=== PATIENT | male | born 1970 | race Caucasian/White ===

== ENCOUNTER 2019-01-04 16:55 | Emergency (ER) | payer OTHER ==
[2019-01-04] MEDS ORDERED: ACETAMINOPHEN 325 MG TABLET (FP) PO ONE (17:16)
[2019-01-04] MEDS ORDERED: ONDANSETRON *ODT* 4 MG TABLET SL ONE (17:17)
[2019-01-04] MEDS ORDERED: ACETAMINOPHEN 325 MG TABLET (FP) ONE (17:26)
[2019-01-04] MEDS ORDERED: ONDANSETRON *ODT* 4 MG TABLET ONE (17:26)
--- NOTE | 2019-01-04 17:26 | PDOC ---
History of Present Illness - General Stated Complaint: Overdose Time Seen by Provider: 01/04/19 16:59 History Source: Patient Exam Limitations: Intoxication (pt awake, but does not remember all of the incident) - History of Present Illness Initial Comments: Pt presenting via EMS from a friend's home after OD on IV heroin use. Pt states he abstained from all drugs and alcohol for 3 years, but today, used "1 bag" of IV heroin after increasing stress at home and trying to get disability insurance. Pt states he used the heroin about 3:30 pm, and the last thing he remembers was "standing up by the couch". The pt then "woke up with EMS around me" on the hardwood floor. Pt denies any active plan to hurt himself, denies current SI/HI stating "I am stress and made a mistake today". EMS provided 2 mg IM narcan, as pts breathing rate was 4 at scene and was minimally responsive. Pt then had 1 episode of NBNB vomiting after he woke up, but was able to communicate with EMS crew. Pts only current complaint is mild headache and nausea. Pt denies any recent fevers/chills, vision changes, chest pain, palpitations, SOB, abdominal pain, urinary symptoms, diarrhea/constipation, or leg swelling. Social: 1 episode heroin use as above, prior heroin and cocaine abuse. Denies cigarettes or alcohol. Pt denies any recent travel or sick contacts. Pt lives at home with his mother and will be able to return there once stable. Surgical: spinal fusion/laminectomy. Family: no relevant history. No early CVA/NC history. 01/04/19 18:03 Past History - Travel Traveled outside of the country in the last 30 days: No Close contact w/someone who was outside of country & ill: No - Past Medical History Allergies/Adverse Reactions: Allergies Allergy/AdvReac Type Severity Reaction Status Date / Time No Known Allergies Allergy Verified 01/04/19 17:34 Home Medications: Ambulatory Orders Gabapentin [Neurontin] 300 mg PO TID 01/08/13 Oxycodone HCl/Acetaminophen [Percocet 10-325 mg Tablet] 1 tab PO Q4H 01/08/13 oxyCODONE SR [Oxycontin*SA*] 40 mg PO BID 01/08/13 - Surgical History Orthopedic Surgery: (LAMINECTOMY) - Suicide/Smoking/Psychosocial Hx Smoking Status: Yes Smoking History: Current every day smoker Number of Cigarettes Smoked Daily: 10 Review of Systems - Review of Systems Able to Perform ROS?: Yes Is the patient limited Turkish proficient: No Constitutional: Yes: Diaphoresis (post narcan with vomiting), Weight Stable. No : Chills, Fever, Loss of Appetite, Malaise, Weakness HEENTM: No: Blurred Vision, Double Vision, Nose Pain, Nose Congestion, Nose Bleeding, Throat Pain, Throat Swelling, Difficulty Swallowing Respiratory: Yes: Other (mild chest tightness with chronic asthma). No: Cough, Orthopnea, Shortness of Breath, Stridor, Wheezing, Hemoptysis Cardiac (ROS): Yes: Chest Tightness. No: Chest Pain, Edema, Irregular Heart Rate, Lightheadedness, Palpitations, Syncope ABD/GI: Yes: Nausea, Vomiting (post narcan, 1 episode NBNB n/v). No: Constipated, Diarrhea, Poor Appetite, Poor Fluid Intake, Abdominal cramping : No: Burning, Dysuria, Pain, Urgency Musculoskeletal: No: Back Pain, Joint Pain, Muscle Pain, Muscle Weakness, Neck Pain Integumentary: No: Rash Neurological: Yes: Headache (headache post narcan/fall). No: Numbness, Paresthesia, Seizure, Weakness, Unsteady Gait, Ataxia, Dizziness Psychiatric: Yes: Anxiety, Depression, Stressors, Emotional Problems. No: Sleep Pattern Change, Change in Appetite Endocrine: No: Increased Urine, Change in Weight Hematologic/Lymphatic: No: Anemia, Blood Clots, Easy Bleeding, Easy Bruising All Other Systems: Reviewed and Negative *Physical Exam - Physical Exam Comments: Mild tachycardia HR 103, O2 100% on RA, pt afebrile. Pt diaphoretic, but in NAD. Normal body habitus. Pt alert and oriented x3. sustainability analyst generally intact, muscular strength and sensation intact. No midline spinal tenderness, step-offs, or crepitus. Head normocephalic, atraumatic. Eyes PERRLA, EOMI. Oropharynx without erythema or exudates, no LAD b/l. No nasal congestion, hearing intact. Clear heart sounds, S1/S2, no JVD, b/l pedal edema, or heart murmur. Clear lung sounds, no respiratory distress, wheezes, crackles, or accessory muscle use. No abdominal or CVA tenderness to palpation, no rebound, no guarding. Abdomen soft, non-distended, and with normoactive bowel sounds. Site of recent IV injection on R hand, with no significant erythema or drainage. Skin otherwise without jaundice or rash. 01/04/19 17:27 01/04/19 18:04 Medical Decision Making - Medical Decision Making Pt was seen at bedside, also will be seen by attending Dr. Atwood. Pt presenting via EMS from a friend's home after OD on IV heroin use. Pt states he abstained from all drugs and alcohol for 3 years, but today, used "1 bag" of IV heroin after increasing stress at home and trying to get disability insurance. Pt states he used the heroin about 3:30 pm, and the last thing he remembers was "standing up by the couch". The pt then "woke up with EMS around me" on the hardwood floor. Pt denies any active plan to hurt himself, denies current SI/HI stating "I am stress and made a mistake today". EMS provided 2 mg IM narcan, as pts breathing rate was 4 at scene and was minimally responsive. Pt then had 1 episode of NBNB vomiting after he woke up, but was able to communicate with EMS crew. Pts only current complaint is mild headache and nausea. Pt denies any recent fevers/chills, vision changes, chest pain, palpitations, SOB, abdominal pain, urinary symptoms, diarrhea/constipation, or leg swelling. Story consistent with overdose from heroin, and pt admitting to using IV drugs. Pt denies any recent fevers/chills or systemic signs. Pt fell from height, will get CT to eval for signs of bleed. Ordered work-up including ECG and non-contrast head CT to evaluate for bleeds, considering pt had fall from standing height, now has mild headache, and does not remember falling. Provided 650 mg PO tylenol and 4 mg SL zofran for improvement of mild headache and nausea. Will continue to reassess pt and monitor for symptomatic improvement. ECG: Sinus tachycardia, intervals WNL (HR 102, KY 140, QRS 86, QTc 477). LVH. No TWIs or significant ST segment changes. LVH not noted on report from prior ECG (December 2012). 01/04/19 17:28 Pt had episode of NBNB vomiting after PO meds. Placing IV line, providing 1 L IV NS and 4 mg IV zofran. 01/04/19 17:43 IV line placed, pt being taken for CT scan. O2 is stable on RA, stable BP, pt alert and oriented. 01/04/19 17:50 Pt brought back from CT as urgent pts pushed ahead, will take back to CT for scan. 01/04/19 18:[address] scan, tolerated small PO water intake in ED, but still complaining of nausea. Providing 25 mg IV benadryl and 10 mg IV reglan. 01/04/19 19:40 CT head without any acute pathology. Will continue to reassess for symptomatic improvement of n/v. 01/04/19 20:04 Pt improved after medications. Vital signs stable and pt is breathing on RA, oriented x3. Has had no further episodes of n/v and has not become hypoxic while in the ED after 4 hours of monitoring. Pt continues to deny SI/HI and has a plan to go to his friends house via cab to stay the night. Pt can follow-up outpatient with PCP. 01/04/19 20:54 *DC/Admit/Observation/Transfer Diagnosis at time of Disposition: Accidental heroin overdose Qualifiers: Encounter type: initial encounter Qualified Code(s): T40.1X1A - Poisoning by heroin, accidental (unintentional), initial encounter - Discharge Dispostion Disposition: HOME Condition at time of disposition: Improved Decision to Admit order: No - Referrals Referrals: Teri Lovett MD [Non Staff, Medical] - - Patient Instructions Printed Discharge Instructions: DI for Drug Overdose in Adults Additional Instructions: You were seen in the ER today for overdose on heroin. You improved after medication (zofran, tylenol, and reglan) for your pain and nausea. Please follow -up with your primary care doctor within 1-2 days to discuss your visit and make sure your symptoms have improved. Please abstain from additional drug use. Please return to the ER or call if you have any worsening pain, plans to hurt yourself or anyone else, development of fevers or chills, loss of consciousness, inability to tolerate food or fluids, shortness of breath, or any other concerns. - Post Discharge Activity
[2019-01-04 17:35] VITALS: BMI 28.0
[2019-01-04] MEDS ORDERED: ONDANSETRON 4 MG/2 ML VIAL IVPUSH ONE (17:39)
[2019-01-04] MEDS ORDERED: SODIUM CHLORIDE 1,000 ML IV STA (17:39)
--- NOTE | 2019-01-04 17:50 | PDOC ---
Documentation entered by Conrado Lambert SCRIBE, acting as scribe for Wellington Atwood MD. Wellington Atwood MD: This documentation has been prepared by the Fausto billy Daniel, SCRIBE, under my direction and personally reviewed by me in its entirety. I confirm that the documentation accurately reflects all work, treatment, procedures, and medical decision making performed by me. Attending Attestation - Resident Resident Name: CristineBrigida - ED Attending Attestation I have performed the following: I have examined & evaluated the patient, The case was reviewed & discussed with the resident, I agree w/resident's findings & plan, Exceptions are as noted - HPI HPI: 01/04/19 17:27 The patient is a 48 year old male with a past medical history of depression, anxiety, HTN, and asthma brought in today by EMS for evaluation of heroin overdose. The patient reports that he has been clean for the past 2 years but used IV heroin today around 3:30 PM. As per EMS, the patient was found by his roommate on the ground. EMS found the patient unconscious and gave 2 doses of narcan and the patient subsequently woke up. Patient reports 1 episode of vomiting and a mild headache. Does not recall falling or hitting his head. Pt denies trying to overdose. Denies SI/HI/AVH. Patient denies lightheadedness. Denies fever, chills. Denies chest pain, shortness of breath. Denies nausea, diarrhea, abdominal pain. Allergies: NKA Social history: Patient denies illegal drug use besides heroin. - Physicial Exam PE: 01/04/19 17:40 "GENERAL: Awake, alert, and fully oriented, in no acute distress. HEAD: No signs of trauma EYES: PERRLA, EOMI, sclera anicteric, conjunctiva clear ENT: Auricles normal inspection, hearing grossly normal, nares patent, oropharynx clear without exudates. Moist mucosa NECK: Nontender, no stepoffs, Normal ROM, supple, no lymphadenopathy, JVD, or masses LUNGS: Breath sounds equal, clear to auscultation bilaterally. No wheezes, and no crackles HEART: Regular rate and rhythm, normal S1 and S2, no murmurs, rubs or gallops ABDOMEN: Soft, nontender, normoactive bowel sounds. No guarding, no rebound. No masses EXTREMITIES: Normal range of motion, no edema. No clubbing or cyanosis. No cords, erythema, or tenderness NEUROLOGICAL: Cranial nerves II through XII intact. 5/5 strength and sensation in all extremities, Normal speech, normal gait, normal cerebellar function SKIN: Warm, Dry, normal turgor, no rashes or lesions noted. - Medical Decision Making 01/04/19 17:40 48 M with heroin overdose, now awake and alert after narcan by EMS. Pt in ED complaining of headache. Given pt was found on the ground, will obtain head CT to r/o ICH. Pt with no neuro deficits. Pt also vomiting in ED, likely 2/2 heroin abuse. - CT head - IVF, zofran, tylenol 01/04/19 21:49 CT negative Pt reassessed - now tolerating PO Awake and alert, no clinical signs of intoxication Pt is well appearing, with normal vitals. Clinically stable for DC at this time. I discussed the physical exam findings, ancillary test results and final diagnoses with the patient. I answered all of the patient's questions. The patient was satisfied with the care received and felt comfortable with the discharge plan and treatment plan. The patient agrees to follow up with the primary care physician within 24-72 hours.
[2019-01-04] MEDS ORDERED: ACETAMINOPHEN 1000 MG/100 ML VIAL (NON FORMULARY) IVPB ONE (18:07)
[2019-01-04] MEDS ORDERED: ACETAMINOPHEN INJECTION 100 ML IVPB ONE (19:21)
[2019-01-04] MEDS ORDERED: METOCLOPRAMIDE HCL INJECTION 10 MG/2 ML VIAL IVPUSH ONE (19:39)
[2019-01-04] MEDS ORDERED: METOCLOPRAMIDE HCL INJECTION 10 MG/2 ML VIAL ONE (20:47)
[2019-01-04 21:35] VITALS: BP 117/74; PULSE 77; TEMP 97.7
--- NOTE | 2019-01-05 14:19 | EKG ---
Test Reason : Blood Pressure : / mmHG Vent. Rate : 102 BPM Atrial Rate : 102 BPM P-R Int : 140 ms QRS Dur : 086 ms QT Int : 366 ms P-R-T Axes : 033 004 028 degrees QTc Int : 477 ms SINUS TACHYCARDIA MINIMAL VOLTAGE CRITERIA FOR LVH, MAY BE NORMAL VARIANT NONSPECIFIC T WAVE ABNORMALITY ABNORMAL ECG Confirmed by MD GAVIN, BRIAN ([id number]) on 01/05/2019 2:19:41 PM Referred By: Confirmed By:BRIAN ALONSO MD
== END 2019-01-04 22:13 | disposition home or self-care (01) ==
LOC: JER 16:55
PROC: 3E033GC Introduction of Other Therapeutic Substance into Peripheral Vein, Percutaneous Approach (ICD-10-PCS; principal; 2019-01-04)
PROC: 3E033GC Introduction of Other Therapeutic Substance into Peripheral Vein, Percutaneous Approach (ICD-10-PCS; 2019-01-04)
PROC: 3E033NZ Introduction of Analgesics, Hypnotics, Sedatives into Peripheral Vein, Percutaneous Approach (ICD-10-PCS; 2019-01-04)
DX: T40.1X1A Poisoning by heroin, accidental (unintentional), initial encounter (principal); R51 Headache; W19.XXXA Unspecified fall, initial encounter; Y93.89 Activity, other specified; Y92.018 Other place in single-family (private) house as the place of occurrence of the external cause; Y99.8 Other external cause status; F17.210 Nicotine dependence, cigarettes, uncomplicated
CPT/HCPCS: 70450-TC; 93005; 93010; 96374; 96375; 99283-25; J0131; J7030; Q0162